=== PATIENT | male | born 1960 | race Caucasian/White ===

== ENCOUNTER → 2020-11-14 | Outpatient (CLI) | payer BC | LOC: M.LAB 09:51 | PROVIDERS: ATTEND Surgery | DX: Z01.812 Encounter for preprocedural laboratory examination (principal); Z20.828 Contact with and (suspected) exposure to other viral communicable diseases ==

== ENCOUNTER → 2020-11-19 | Day surgery (SDC) | payer OTHER ==
[~2020-11-19] MED LIST: AMLODIPINE BESY10 MG PO; FENOFIBRATE160 MG; HYDROCODON-ACE1 EAC7 PO; LEVOTHYROXINE75 MCG PO; METFORMIN HCL500 MG PO; METOPROLOL SUC100 MG PO; SPIRONOLACTONE50 MG PO
--- NOTE | ~2020-11-19 | EKG ---
[place] [address] ELECTROCARDIOGRAM REPORT Name: BILLIE CRUZ Room: [facility]#: [id number] Admission: 11/19/20 Attend Phys: Katie Lutz, Discharge: Date of : 62 Date of Service: 11/19/20725 Report #: [id number] THIS REPORT FOR: //name// [facility] Test Date: 2020-11-19 Test Time: 07:26:18 Pat Name: BILLIE CRUZ Department: Room: Gender: [employer]: ELLE : 1960 Requested By: Katie Lutz Order Number: [id number] Reading MD: Measurements Intervals [place] Rate: 67 P: 31 AL: 209 QRS: -18 QRSD: 87 T: 40 QT: 435 QTc: 460 Interpretive Statements Sinus rhythm Borderline prolonged AL interval Inferior infarct, old No previous ECG available for comparison [email or web address] By: 5 0726 Epiphany Epiphany, /EPI
[2020-11-19 07:15] LABS: HEMOGLOBIN 15.3 gm/dL (14.0-18.0); MCH 29.4 pg (26.0-34.0); MCHC 34.1 g/dL (28.0-37.0); RBC 5.22 mil/uL (4.50-6.00)
[2020-11-19 07:17] LABS: MCV 86.3 fL (80.0-100.0); MPV 9.1 fl. (7.2-11.1); RDW-CV 13.7 % (10.5-14.5); WBC 8.8 thou/uL (4.0-11.0)
[2020-11-19 07:32] LABS: CALCIUM 8.7 mg/dL (8.5-10.1); CREATININE 1.4 mg/dL (0.6-1.3); POTASSIUM 3.3 mmol/L (3.5-5.1)
--- NOTE | 2020-11-25 13:07 | PATH ---
[address] [address] PATHOLOGY RPT PROCEDURE Name: BILLIE NORMAN Room: [facility]#: [id number] Admission: 11/19/20 Date of : 62 Discharge: Report #: [id number] Path Case #: [id number] [facility] Accession Number: [id number] . 01 Material submitted: . scalp - LEFT SCALP MASS AND ADDITIONAL 6:00 SKIN MARGIN. Modifiers: left . 02 Diagnosis: Skin and soft tissue "left scalp mass", excision: - Epidermoid inclusion cyst; negative for malignancy. (MLK:pit; 11/21/2020) QTP 11/21/2020 0706 Local . 02 Electronically signed: . Johnson Salazar MD, Pathologist NPI- [id number] . 01 Gross description: . Received in formalin labeled "Billie Norman, left scalp mass long stitch kelley 12:00 short stitch kelley deep margin" is an oriented ovoid hairbearing lares-pink portion of skin measuring 4.3 x 4.2 cm and excised to a maximum depth of 3.4 cm. The specimen is oriented with a long suture designating 12:00 and a short sit designating deep. The specimen is inked as follows: 12:00 to 3:00-yellow 3:00 to 6:00-blue 6:00 to 12:00-black Skin surface is a partially cystic/solid mass measuring 4.3 x 4.2 x 1.6 cm that abuts all peripheral margins. The specimen is serially section 12:00 to 6:00 to reveal a cystic structure filled with lares-brown necrotic debris. The cyst lining is smooth and has no papillary excrescences grossly identified. Sections specimen is submitted in cassettes A1-A3.([facility]; 11/19/2020) GZA/GZA 11/19/2020 1803 Local . 02 Pathologist provided ICD-10: L72.0 . 02 CPT . 463307 Specimen Comment: A courtesy copy of this report has been sent to [phone] Specimen Comment: Report sent to / Performed at: [address] [id number] MD Suman Whitten MD Phone: [phone] Performed at: 02 [place] [address] PATHOLOGY RPT PROCEDURE Name: BILLIE NORMAN Room: [facility]#: [id number] Admission: 11/19/20 Date of : 62 Discharge: Report #: [id number] Path Case #: [id number] [address] [place] [id number] MD Fredy Tsang [place] Phone: [phone]
--- NOTE | 2020-11-28 11:07 | OP ---
[address] [address] OPERATIVE REPORT Name: BILLIE CRUZ Room: [facility].R.#: [id number] Admission: 11/19/20 Attend Phys: Katie Lutz DO Discharge: Date of : 62 Report #: [id number] THIS REPORT FOR: cc: Roly Vaz Herbert E. DO ~ Katie Lutz DO DATE OF SERVICE: 11/19/2020 PREOPERATIVE DIAGNOSIS: Left scalp mass. POSTOPERATIVE DIAGNOSIS: Left scalp mass. SURGEON: Katie Lutz DO ANESTHESIA: General endotracheal. PROCEDURE: Excision of left scalp mass. SPECIMENS: Left scalp mass (long stitch kelley 12 o'clock skin margin, short stitch kelley deep margin, additional 6 o'clock skin margin). ESTIMATED BLOOD LOSS: 75 mL. COMPLICATIONS: None. INDICATIONS FOR PROCEDURE: The patient is a 60-year-old gentleman who presented to my office for evaluation of enlarging left scalp mass, which he has had for several years. The patient states that his parents noticed it and expressed concern; therefore, he desires surgical excision. The patient was explained the procedure including risks, benefits, alternatives. All questions were answered to patient's satisfaction, informed consent was obtained. DESCRIPTION OF PROCEDURE: After the patient was brought back to the operating room and placed in supine position, general anesthesia was induced. SCDs were placed on bilateral extremities and prophylactic antibiotics were administered. Next, after a timeout was performed, the head was placed on a Gelfoam donut and turned to the right exposing the pedunculated 5 cm mass. The area was then prepped and draped in the usual sterile fashion. Local anesthetic was infiltrated around the base of the mass. This was a broad-based pedunculation and therefore, using a marking pen, I attempted to preserve the majority of the normal appearing skin that was on the lower area of the pedunculation to allow for skin closure. Dissection was carried down through the skin and subcutaneous tissues using a 15 blade scalpel as well as Bovie cautery. This was noted to be quite vascular in nature. A plane was noted around the mass capsule, which was divided using Metzenbaum scissors as well as a [place] tip Bovie cautery. The [address] [address] OPERATIVE REPORT Name: BILLIE CRUZ Room: [facility]#: [id number] Admission: 11/19/20 Attend Phys: Katie Lutz DO Discharge: Date of : 62 Report #: [id number] mass was circumferentially dissected free from the skin and was extended downward. The mass before incision measured 5.4 x 3 x 4.2 cm from the level of the scalp. The dissection of the mass continued deep through the scalp muscles near the periosteum of the skull. Several small vessels were identified and cautery was used to control the bleeding. Proximally in the 6-1/2 to 7 o'clock position, there was a 7 mm vessel, which appeared to be the main vascular source to the mass. This was triply clipped distally and tied with 3-0 silk suture and was transected. The mass was then transected from the base in the 6 o'clock as well as in the 11 o'clock position. There was noted to be dense thick yellow adipose tissue around the mass. The wound was then copiously irrigated. Hemostasis was achieved. Undermining of the skin flaps were then performed. The deep subcutaneous tissues were then reapproximated with 2-0 Vicryl suture in an interrupted fashion. The skin was then reapproximated with 3-0 nylon suture. There was excess skin along the 6 o'clock margin creating a dog ear. Therefore, this was excised and sent as additional 6 o'clock skin margin, which would have been extending on to the base of the pedunculated mass. Hemostasis was achieved. The skin was able to be closed in its entirety with interrupted nylon suture. Local anesthetic was infiltrated into the subcutaneous tissues. Bacitracin ointment was then applied to the incision site, 4 x 4s were then placed over the incision and a Kerlix wrap around the head was then placed for sterile dressing. The patient tolerated the procedure well without any complications. All sponge, instrument count was reported as correct at the end of the case. He was awakened from anesthesia in the operating room and taken to PACU in stable condition for further recovery. <ELECTRONICALLY SIGNED> By: Katie Lutz DO 11/28/20 1107 0928 [id number] Lutz DO /nt
== END | disposition home or self-care (01) ==
LOC: M.SUR 06:40
PROVIDERS: ATTEND Surgery
DX: L72.0 Epidermal cyst (principal); I10 Essential (primary) hypertension; E03.9 Hypothyroidism, unspecified; G47.33 Obstructive sleep apnea (adult) (pediatric); Z98.890 Other specified postprocedural states; Z79.899 Other long term (current) drug therapy; Z87.442 Personal history of urinary calculi; Z88.8 Allergy status to other drugs, medicaments and biological substances